=== PATIENT | male | born 1985 | race Caucasian/White ===

== ENCOUNTER 2019-06-21 14:24 | Outpatient (CLI) | payer OTHER, SELFPAY ==
--- NOTE | 2019-06-21 | US_ITS ---
WS: [id number] SCROTAL ULTRASOUND EXAMINATION CLINICAL INFORMATION: LEFT TESTICULAR PAIN COMPARISON: None. FINDINGS: TESTES 2.6 x 1.4 cm left para-testicular well-circumscribed vascular soft tissue nodule with internal cystic change. This appears to be located in the left scrotal sac inferiorly but difficult to further local ize and characterize on today's study. Prominent internal vascularity and flow voids. Recommend corre lation with area of pain. Differential considerations include varicocele and vascular/venous anomalies. Neoplasm is not entirel y excluded but less likely. Right testicle is normal in size and echotexture. Color Doppler: Normal color Doppler flow pattern. Right testes size: 3.2 cm x 2.3 cm x 1.9 cm. Left testes size: 3.4 cm x 2.4 cm x 1.7 cm. EPIDIDYMIDES Normal in size and echotexture, without focal lesion. Color Doppler: Normal color Doppler flow pattern. HYDROCELE Tiny amount of fluid about the left testicle VARICOCELE None. OTHER FINDINGS None. US/US scrotum 11111 IMPRESSION: 1. 1.4 x 2.6 cm well-circumscribed left testicular nodule in the inferior scro patricia sac with prominent vascularity and cystic change. This lesion is indetermin ant and difficult to further characterize. Some considerations include varicoce le, venous malformation, tubular ectasia rete testes, and scrotal hemangioma. N eoplasm is not entirely excluded but less likely. Recommend urology consultatio n and follow-up ultrasound for better anatomic detail. 2. Trace fluid along the left testicle. 3. Right testicle is normal in size and echogenicity.
== END 2019-06-21 14:25 | disposition home or self-care (01) ==
LOC: RADOUTREAD 06-22 07:27
PROVIDERS: Family Provider Family Medicine; PCP Family Medicine; Visit Provider Nurse Practitioner
DX: Z76.89 Persons encountering health services in other specified circumstances (principal)

== ENCOUNTER → 2021-12-02 18:33 | Outpatient (BNVA) | payer SELFPAY | PROVIDERS: Family Provider Family Medicine; PCP Family Medicine; Visit Provider Registered Nurse Neonatal Intensive Care | DX: S69.91XA Unspecified injury of right wrist, hand and finger(s), initial encounter (principal); W20.8XXA Other cause of strike by thrown, projected or falling object, initial encounter | CPT/HCPCS: 73130 ==

== ENCOUNTER → 2023-12-01 10:26 | Outpatient (BNVA) | payer OTHER, SELFPAY | PROVIDERS: Family Provider Family Medicine; PCP Family Medicine; Visit Provider Family Medicine | DX: Z00.00 Encounter for general adult medical examination without abnormal findings (principal) | CPT/HCPCS: 80053; 80061 ==